=== PATIENT | male | born 1965 | race Caucasian/White ===

== ENCOUNTER → 2020-02-04 08:15 | Outpatient (CLI) | payer BC, SELFPAY ==
--- NOTE | ~2020-02-04 | CT_ITS ---
EXAMINATION: CT abdomen pelvis w con INDICATION: Left lower quadrant abdominal pain, history of partial colectomy TECHNIQUE: Computed tomographic images of the abdomen and pelvis were obtained after the administrati on of 100 cc of Omnipaque 350 intravenous contrast. The dose-length product (DLP) was 855.23 mGy-cm. Automated exposure control and iterative reconstruction technique were employed. COMPARISON: 02/22/2019 FINDINGS: The lung bases are clear. The heart size is normal. There are stable cysts of the liver whi ch measure up to 10 mm. The spleen, pancreas, gallbladder, and adrenal glands are normal. The kidneys are unremarkable. There are surgical changes of right hemicolectomy. No pathologically enlarged abdo vasquez or pelvic lymph nodes are identified. There is no free intraperitoneal gas or evidence of bowel obstruction. There appear to be changes of left inguinal hernia repair. There is moderate lumbar spo ndylosis. Multiple tiny epigastric ventral hernias containing fat are noted. Colonic diverticulosis i s present without evidence of diverticulitis. IMPRESSION: 1. No CT correlate for the patient's symptoms. Diverticulosis without diverticulitis. Reviewed, dictated and finalized at location A. IMPRESSION: 1. No CT correlate for the patient's symptoms. Diverticulosis without diverticu litis.
== END ==
PROVIDERS: PCP Internal Medicine; Visit Provider Physician Assistant Medical
DX: R10.32 Left lower quadrant pain (principal); K57.90 Diverticulosis of intestine, part unspecified, without perforation or abscess without bleeding
CPT/HCPCS: 74177; Q9967

== ENCOUNTER → 2020-08-12 00:29 | Outpatient (CLI) | payer BC, SELFPAY ==
[2020-08-12 18:59] LABS: SARS-CoV-2 RNA PCR Negative
== END ==
PROVIDERS: PCP Internal Medicine; Visit Provider Internal Medicine Gastroenterology
DX: Z01.812 Encounter for preprocedural laboratory examination (principal); Z20.822 Contact with and (suspected) exposure to COVID-19
CPT/HCPCS: C9803; U0003; U0005

== ENCOUNTER 2020-08-15 01:44 | Day surgery (SDC) | payer BC, SELFPAY ==
[2020-08-02 09:39] VITALS: BMI 28.9
[2020-08-15 07:20] VITALS: BP 117/79; PULSE 83; RESP 18; TEMP 36.1; O2SAT 99; BMI 28.4
[2020-08-15] MEDS: LACTATED RINGERS 1,000 ML 150 ML IV CONT (07:34)
--- NOTE | 2020-08-15 07:45 | PM.HPGS ---
History of Present Illness History of Present Illness Consent: Risks, benefits, and alternatives have been discussed and questions answered. Patient agrees to proceed with procedure. Chief complaint: Hx Of Colon Polyps Narrative: Nathanael Rodrigues is a 55 year old male here for colon cancer screening. 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 Review of Systems Review of Systems: All systems reviewed & are unremarkable except as noted in HPI and below [facility] Social History Social History Smoking status: Never smoker Alcohol intake: current Drinks per week: 5 Substance use type: does not use Living arrangements: with family Spiritual care concerns: No Meds Home Medications and Allergies Home Medications Medication Instructions Recorded Confirmed Type levothyroxine 175 mcg PO DAILY 08/02/20 08/15/20 History Allergies Allergy/AdvReac Type Severity Reaction Status Date / Time Sulfa (Sulfonamide Allergy Unknown Unknown Verified 08/15/20 07:18 Antibiotics) Vital Signs Vital Signs - 24 hr 08/15/20 07:20 Temperature 36.1 C L Pulse Rate 83 Respiratory Rate 18 Blood Pressure 117/79 Pulse Oximetry 99 Exam Resp: Auscultation: clear to auscultation bilaterally Cardio: Rate: regular rate Rhythm: regular rhythm GI: GI Palp: Yes Soft to palpation and No Tenderness to palpation present (GI) Assessment and Plan Assessment and plan (1) Colon cancer screening: Code(s): Z12.11 - Encounter for screening for malignant neoplasm of colon Status: Acute Assessment and Plan: Colonoscopy with possible biopsy or polypectomy or cautery or injection of substances.
--- NOTE | 2020-08-15 08:01 | P.PNAN_ITS ---
Anes - Initial Pre Proc Eval Procedure: Operation Date: 08/15/20 08:30 Proposed Procedures p Screening Colonoscopy - Adam Fagan MD Date/Time: 08/15/20 08:01 Surgeon: Adam Fagan MD Pre Op Diagnosis: Hx Of Colon Polyps Patient Data Age: 55 Gender: M Height: 5 ft 11 in Weight: 92.5 kg Last Vital Signs Temp 96.9 F L 08/15/20 07:20 Pulse 83 08/15/20 07:20 Resp 18 08/15/20 07:20 BP 117/79 08/15/20 07:20 Pulse Ox 99 08/15/20 07:20 Allergies Allergy/AdvReac Type Severity Reaction Status Date / Time Sulfa (Sulfonamide Allergy Unknown Unknown Verified 08/15/20 07:18 Antibiotics) Home Medications Medication Instructions Recorded Confirmed Type levothyroxine 175 mcg PO DAILY 08/02/20 08/15/20 History Patient hx anesthesia problems: none Family hx anesthesia problems: none [facility] Past Medical History Medical History (Updated 08/15/20 @ 08:01 by Calvin Rod MD) COLIN (obstructive sleep apnea) Social History Social History Smoking status: Never smoker Alcohol intake: current Drinks per week: 5 Substance use type: does not use Living arrangements: with family Spiritual care concerns: No Anes - Eval Final PreProcedure Day of Procedure 08/15/20 08:01 Patient weight: overweight Heart: regular rate and rhythm Lungs: clear to auscultation Airway: Mallampati scale class II Neurological: alert and oriented Last oral intake: >/= 8 hours ASA classification: II Emergent: no Anesthetic plan: proceed Anesthesia type and monitoring: general GIVS and standard monitoring Informed Consent: The patient's anesthetic plan and its attendant risks and benefits were discussed with the patient/family/POA. Questions were solicited and answers provided to the satisfaction of the patient/family/POA.
[2020-08-15] MEDS: SIMETHICONE ORAL SUSPENSION 20 MG/0.3 ML 30 ML BOTTLE 0.6 ML IRRIGATION (08:38)
[2020-08-15 08:45] VITALS: BP 120/77; PULSE 64; RESP 20; O2SAT 98
[2020-08-15 08:55] VITALS: BP 114/76; PULSE 63; RESP 18; O2SAT 99
[2020-08-15 09:05] VITALS: BP 118/76; PULSE 55; RESP 20; O2SAT 98
== END 2020-08-15 09:27 | disposition home or self-care (01) ==
PROVIDERS: PCP Internal Medicine; Visit Provider Internal Medicine Gastroenterology
PROC: 0DJD8ZZ Inspection of Lower Intestinal Tract, Via Natural or Artificial Opening Endoscopic (ICD-10-PCS; CPT 45378; principal; 2020-08-15 08:30)
DX: Z12.11 Encounter for screening for malignant neoplasm of colon (principal); K57.30 Diverticulosis of large intestine without perforation or abscess without bleeding; Z86.010 Personal history of colon polyps; Z90.49 Acquired absence of other specified parts of digestive tract
CPT/HCPCS: 45378; J2704; J7120